=== PATIENT | male | born 1965 | race American Indian/Alaskan Native ===

== ENCOUNTER 2021-07-05 10:40 | Emergency (ER) | payer SELFPAY ==
[2021-07-05 11:29] VITALS: BP 153/89
--- NOTE | 2021-07-05 11:44 | Emergency Department Report ---
ED Lower Extremity HPI - General Chief Complaint: Extremity Injury, Lower Stated Complaint: RT LEG SWELLING Source: patient Mode of arrival: Ambulatory Limitations: No Limitations - History of Present Illness Initial Comments: Chief complaint: Right leg swelling HPI: This is a 56-year-old male with history of DVT VTE in abdomen who presents with right lower leg swelling for the last 4 to 5 days. 4 months ago he was diagnosed with right-sided right calf DVT and Ultram. He was treated with anticoagulation for 3 months. He stated that he had "clots in my abdomen". He was cleared by specialist. He did not require any further anticoagulation. Recently he noticed swelling in his lower leg without pain. Prior to returning to the [facility], ultrasound revealed that the right calf DVT still present. He denies chest pain or shortness of breath. He denies severe pain. Complaint: other (Right leg swelling) -: Gradual Injury: Leg: Right Place: other (No injury) Severity: mild Improves With: nothing Worsens With: nothing Context: other (History of DVT 4 months ago) Associated Symptoms: swelling - Related Data Previous Rx's Medication Instructions Recorded Last Taken Type Apixaban [Eliquis starter pack] 5 mg PO DAILY #1 tab.ds.pk 07/05/21 Unknown Rx Apixaban [Eliquis] 5 mg PO BID 30 Days #60 tablet 07/05/21 Unknown Rx ED Review of Systems ROS: Stated complaint: RT LEG SWELLING Other details as noted in HPI Comment: All other systems reviewed and negative Constitutional: denies: chills, fever Respiratory: denies: cough, shortness of breath Cardiovascular: denies: chest pain Gastrointestinal: denies: abdominal pain, nausea, vomiting Skin: denies: rash, lesions ED Past Medical Hx - Past Medical History Previous Medical History?: Yes Additional medical history: DVT - Surgical History Past Surgical History?: Yes Additional Surgical History: Prostate surgery - Social History Smoking Status: Never Smoker Substance Use Type: None - Medications Home Medications: Home Medications Medication Instructions Recorded Confirmed Last Taken Type Apixaban [Eliquis starter pack] 5 mg PO DAILY #1 tab.ds.pk 07/05/21 Unknown Rx Apixaban [Eliquis] 5 mg PO BID 30 Days #60 tablet 07/05/21 Unknown Rx ED Physical Exam - General Limitations: No Limitations General appearance: alert, in no apparent distress - Head Head exam: Present: atraumatic, normocephalic - Eye Eye exam: Present: normal appearance - ENT ENT exam: Present: mucous membranes moist - Neck Neck exam: Present: normal inspection, full ROM - Respiratory Respiratory exam: Present: normal lung sounds bilaterally. Absent: respiratory distress, wheezes, rales, rhonchi, stridor - Cardiovascular Cardiovascular Exam: Present: regular rate, normal rhythm, normal heart sounds. Absent: systolic murmur, diastolic murmur, rubs, gallop - GI/Abdominal GI/Abdominal exam: Present: soft, normal bowel sounds. Absent: distended, tenderness, guarding, rebound - Rectal Rectal exam: Present: deferred - Extremities Exam Extremities exam: Present: pedal edema, other (Right lower extremity: Mild edema from knee to foot 2+ DP pulse normal coloration slightly larger than the left lower extremity no cellulitic changes skin intact) - Neurological Exam Neurological exam: Present: alert, oriented X3 - Psychiatric Psychiatric exam: Present: normal affect, normal mood - Skin Skin exam: Present: warm, dry, intact, normal color. Absent: rash ED Course Vital Signs 07/05/21 07/05/21 11:28 11:29 Temperature 98.3 F Pulse Rate 50 L Blood Pressure 153/89 O2 Sat by Pulse 99 Oximetry ED Lower Extremity MDM - Radiology Data Radiology results: [place] [address] Vascular Lab Report Signed Patient: JACQUELYN RUBIO MR#: [id number] : 1965 Acct:[id number] Age/Sex: 56 / M ADM Date: 07/05/21 Loc: ED Attending Dr: Ordering Physician: Shamika Lindo MD Date of Service: 07/05/21 Procedure(s): VL venous duplex LE RT Accession Number(s): [id number] cc: Shamika Lindo MD DUPLEX DOPPLER LOWER EXTREMITY VEINS, RIGHT INDICATION / CLINICAL INFORMATION: right leg swelling hx of DVTG. TECHNIQUE: Duplex doppler imaging was performed through the veins of the right lower extremity using venous compression and other maneuvers. COMPARISON: None available. FINDINGS: RIGHT COMMON FEMORAL VEIN: Negative. RIGHT FEMORAL VEIN: Negative. RIGHT POPLITEAL VEIN: Acute thrombus. RIGHT CALF VEINS: Acute thrombus. ADDITIONAL FINDINGS: None. IMPRESSION: 1. Acute DVT in the right popliteal vein and right calf veins. Signer Name: Nasim Solis MD Signed: 07/05/2021 12:47 PM Workstation Name: [id number] Transcribed By: GRETA Dictated By: Nasim Solis MD Electronically Authenticated By: Nasim Solis MD Signed Date/Time: 07/05/211246 DD/ 46 TD/TT: - Medical Decision Making Acute DVT right calf and popliteal vein: No signs or symptoms of pulmonary embolism. 30-day supply of Eliquis provided. Patient given referral to internal medicine physician. Patient also given Eliquis coupon. Critical care attestation.: If time is entered above; I have spent that time in minutes in the direct care of this critically ill patient, excluding procedure time. ED Disposition Clinical Impression: Acute deep vein thrombosis (DVT) of right popliteal vein, Deep vein thrombosis (DVT) of calf muscle vein of right lower extremity Disposition: 01 HOME / SELF CARE / HOMELESS Is pt being admited?: No Does the pt Need Aspirin: No Condition: Stable Instructions: Deep Vein Thrombosis Prescriptions: Apixaban [Eliquis] 5 mg PO BID 30 Days #60 tablet Apixaban [Eliquis starter pack] 5 mg PO DAILY #1 tab.ds.pk Referrals: KRISTYN PINEDA MD [Staff Physician] - 3-5 Days
--- NOTE | 2021-07-05 12:52 | Vascular Lab Report ---
DUPLEX DOPPLER LOWER EXTREMITY VEINS, RIGHT INDICATION / CLINICAL INFORMATION: right leg swelling hx of DVTG. TECHNIQUE: Duplex doppler imaging was performed through the veins of the right lower extremity using venous comp ression and other maneuvers. COMPARISON: None available. FINDINGS: RIGHT COMMON FEMORAL VEIN: Negative. RIGHT FEMORAL VEIN: Negative. RIGHT POPLITEAL VEIN: Acute thrombus. RIGHT CALF VEINS: Acute thrombus. ADDITIONAL FINDINGS: None. IMPRESSION: 1. Acute DVT in the right popliteal vein and right calf veins. Signer Name: Nasim Solis MD Signed: 07/05/2021 12:47 PM Workstation Name: [email or web address] [id number]
[2021-07-05] MEDS ORDERED: APIXABAN 5 MG TAB PO STA (13:37)
== END 2021-07-05 13:43 | disposition home or self-care (01) ==
LOC: ED 10:40
DX: I82.431 Acute embolism and thrombosis of right popliteal vein (principal); Z98.890 Other specified postprocedural states; Z88.6 Allergy status to analgesic agent; Z79.01 Long term (current) use of anticoagulants
CPT/HCPCS: 99283

== ENCOUNTER 2022-02-28 23:28 | Emergency (ER) | payer OTHER ==
[2022-03-01 00:06] VITALS: BP 157/97
== END 2022-03-01 00:10 | disposition left against medical advice (07) ==
LOC: ED 23:28
DX: I10 Essential (primary) hypertension (principal); Z53.21 Procedure and treatment not carried out due to patient leaving prior to being seen by health care provider

== ENCOUNTER 2022-03-02 02:47 | Inpatient (IN) | payer OTHER ==
[2022-03-02] MEDS ORDERED: ASPIRIN 325 MG TAB PO ONE (03:39)
--- NOTE | 2022-03-02 04:25 | XRay Report ---
CHEST 2 VIEWS INDICATION / CLINICAL INFORMATION: chestpain. COMPARISON: None available. FINDINGS: SUPPORT DEVICES: None. HEART / MEDIASTINUM: No significant abnormality. LUNGS / PLEURA: No significant pulmonary or pleural abnormality. No pneumothorax. ADDITIONAL FINDINGS: No significant additional findings. IMPRESSION: 1. No acute findings. Signer Name: Tc Lima DO Signed: 03/02/2022 4:21 AM Workstation Name: [id number]
[2022-03-02 04:32] LABS: Basophils # (Auto) 0.1 K/mm3 (0.0-0.1); Basophils % (Auto) 1.3 % (0.0-1.8); Eosinophils # (Auto) 0.4 K/mm3 (0.0-0.4); Eosinophils % (Auto) 5.8 % (0.0-4.3); Hematocrit 51.1 % (35.5-45.6); Hemoglobin 16.6 gm/dl (11.8-15.2); Lymphocytes # (Auto) 2.6 K/mm3 (1.2-5.4); Lymphocytes % (Auto) 40.2 % (13.4-35.0); Mean Corpuscular HGB Conc 32 % (32-34); Mean Corpuscular Volume 76 fl (84-94); Monocytes # (Auto) 0.5 K/mm3 (0.0-0.8); Monocytes % (Auto) 7.2 % (0.0-7.3); Platelet Count 211 K/mm3 (140-440); Red Blood Count 6.74 M/mm3 (3.65-5.03); Red Cell Distribution Width 16.9 % (13.2-15.2)
[2022-03-02 04:53] LABS: Alanine Aminotransferase 21 units/L (7-56); Albumin 4.4 g/dL (3.9-5); BUN/Creatinine Ratio 15; Blood Urea Nitrogen 15 mg/dL (9-20); Calcium 9.5 mg/dL (8.4-10.2); Hemolysis Index 25
--- NOTE | 2022-03-02 09:18 | Emergency Department Report ---
HPI - General Chief Complaint: Chest Pain Time Seen by Provider: 03/02/22 08:54 - HPI HPI: Room 24 Patient is a 56-year-old male presenting with a chief complaint of left chest pain. The patient states he has had a stressful week and last night while at rest developed some lightheadedness and then a small sticking pain to the left chest. Patient states that the pain was not severe but just a small intermittent sticking pain to the left chest. Patient admits to some shortness of breath while lying supine. Patient denies pleurisy, cough or fever. Patient denies having nausea or vomiting. Patient states his chest pain is resolved currently he has not had any episodes of sticking pain since last night. Of note the patient was diagnosed with a DVT in his right lower extremity January 2021 and is currently on Eliquis. The patient states he was told he had an irregular heartbeat in the past. Patient states he had a normal stress test last year but has never had a cardiac catheterization ED Past Medical Hx - Past Medical History Previous Medical History?: Yes Hx Hypertension: Yes Additional medical history: DVT right lower extremity, BPH - Surgical History Past Surgical History?: Yes Additional Surgical History: Prostate surgery - Family History Family history: no significant - Social History Smoking Status: Never Smoker Substance Use Type: None (Denies illicit drug use) - Medications Home Medications: Home Medications Medication Instructions Recorded Confirmed Last Taken Type Apixaban [Eliquis starter pack] 5 mg PO DAILY #1 tab.ds.pk 07/05/21 1 Day Ago Rx ~03/01/22 Apixaban [Eliquis] 5 mg PO BID 30 Days #60 tablet 07/05/21 03/02/22 1 Day Ago Rx ~03/01/22 ED Review of Systems ROS: Stated complaint: HIGH BP/POSS BLOOD CLOT Other details as noted in HPI Constitutional: denies: fever Eyes: denies: eye pain ENT: denies: throat pain Respiratory: shortness of breath. denies: cough Cardiovascular: chest pain Endocrine: no symptoms reported Gastrointestinal: denies: nausea, vomiting Genitourinary: denies: dysuria Musculoskeletal: denies: back pain Neurological: denies: headache Physical Exam - Physical Exam Vital Signs: Vital Signs 03/02/22 03:25 Temperature 98.0 F Pulse Rate 60 Respiratory 18 Rate Blood Pressure 189/95 O2 Sat by Pulse 98 Oximetry Physical Exam: GENERAL: The patient is well-developed well-nourished male lying on stretcher not appearing to be in acute distress. [] HEENT: Normocephalic. Atraumatic. Extraocular motions are intact. Patient has moist mucous membranes. NECK: Supple. Trachea midline CHEST/LUNGS: Clear to auscultation. There is no respiratory distress noted. HEART/CARDIOVASCULAR: Regular. There is no tachycardia. There is no gallop rub or murmur. ABDOMEN: Abdomen is soft, nontender. Patient has normal bowel sounds. There is no abdominal distention. SKIN: There is no rash. There is no edema. There is no diaphoresis. NEURO: The patient is awake, alert, and oriented. The patient is cooperative. The patient has no focal neurologic deficits. The patient has normal speech. GCS 15 MUSCULOSKELETAL: There is no evidence of acute injury. ED Course Vital Signs 03/02/22 03:25 Temperature 98.0 F Pulse Rate 60 Respiratory 18 Rate Blood Pressure 189/95 O2 Sat by Pulse 98 Oximetry - Consultations Consultation #1: 03/02/22 12:02 Cardiology paged 03/02/22 12:43 Case discussed with dog or animal sitter Dr Medeiros-recommends admission to the hospital for observation given bradycardia with A. fib and possible intrinsic block ED Medical Decision Making - Lab Data Result diagrams: 03/02/22 04:12 03/02/22 04:12 Laboratory Tests 03/02/22 03/02/22 03/02/22 04:12 04:12 06:51 WBC 6.4 RBC 6.74 H Hgb 16.6 H Hct 51.1 H MCV 76 L MCH 25 L MCHC 32 RDW 16.9 H Plt Count 211 Lymph % (Auto) 40.2 H [place] % (Auto) 7.2 Eos % (Auto) 5.8 H Baso % (Auto) 1.3 Lymph # (Auto) 2.6 [place] # (Auto) 0.5 Eos # (Auto) 0.4 Baso # (Auto) 0.1 Seg Neutrophils % 45.5 Seg Neutrophils # 2.9 Sodium 139 Potassium 4.3 Chloride 102.2 Carbon Dioxide 27 Anion Gap 14 BUN 15 Creatinine 1.0 Estimated GFR > 60 BUN/Creatinine Ratio 15 Glucose 105 H Calcium 9.5 Total Bilirubin 1.50 H AST 23 ALT 21 Alkaline Phosphatase 89 Troponin T < 0.010 < 0.010 Total Protein 7.7 Albumin 4.4 Albumin/Globulin Ratio 1.3 03/02/22 09:39 WBC RBC Hgb Hct MCV MCH MCHC RDW Plt Count Lymph % (Auto) [place] % (Auto) Eos % (Auto) Baso % (Auto) Lymph # (Auto) [place] # (Auto) Eos # (Auto) Baso # (Auto) Seg Neutrophils % Seg Neutrophils # Sodium Potassium Chloride Carbon Dioxide Anion Gap BUN Creatinine Estimated GFR BUN/Creatinine Ratio Glucose Calcium Total Bilirubin AST ALT Alkaline Phosphatase Troponin T < 0.010 Total Protein Albumin Albumin/Globulin Ratio - EKG Data -: EKG Interpreted by Me Rate: bradycardia (55 bpm) - EKG Data When compared to previous EKG there are: previous EKG unavailable Interpretation: other (Atrial flutter with variable conduction) - Radiology Data Radiology results: report reviewed (Chest x-ray, VQ scan), image reviewed (Chest x-ray) interpreted by me: Chest x-ray-no definite focal infiltrates, no pneumothorax [facility] [address] [place] [address] XRay Report Signed Patient: JACQUELYN RUBIO MR#: [id number] : 1965 Acct:[id number] Age/Sex: 56 / M ADM Date: 03/02/22 Loc: ED Attending Dr: Ordering Physician: JASE SOSA MD Date of Service: 03/02/22 Pro cedure(s): XR chest routine 2V Accession Number(s): [id number] cc: ED MD SHEILA Fluoro Time In Minutes: CHEST 2 VIEWS INDICATION / CLINICAL INFORMATION: chestpain. COMPARISON: None available. FINDINGS: SUPPORT DEVICES: None. HEART / MEDIASTINUM: No significant abnormality. LUNGS / PLEURA: No significant pulmonary or pleural abnormality. No pneumothorax. ADDITIONAL FINDINGS: No significant additional findings. IMPRESSION: 1. No acute findings. Signer Name: Tc Martinez DO Signed: 03/02/2022 4:21 AM Workstation Name: [id number] Transcribed By: MADDY Dictated By: TC MARTINEZ DO Electronically Authenticated By: TC MARTINEZ DO Signed Date/Time: 03/02/22420 DD/ 8 TD/TT: VQ scan (read by radiologist)-low probability - Differential Diagnosis PE, ACS, anxiety, costochondritis, Critical care attestation.: If time is entered above; I have spent that time in minutes in the direct care of this critically ill patient, excluding procedure time. ED Disposition Clinical Impression: Atrial flutter, Chest pain Disposition: ADMITTED INPATIENT Is pt being admited?: Yes Does the pt Need Aspirin: No Condition: Fair Instructions: Nonspecific Chest Pain, Adult Referrals: PRIMARY CARE,MD [Primary Care Provider] - 3-5 Days Time of Disposition: 12:48 (Care transferred to hospitalist (Dr. Arellaon))
--- NOTE | 2022-03-02 09:23 | Electrocardiograph Report ---
[facility] Test Date: 2022-03-02 Test Time: 03:52:22 Pat Name: JACQUELYN RUBIO Department: Room: Gender: M Curriculum Designer: BELINDA : 1965 Requested By: ED DOC Order Number: [id number] Reading MD: Horace Alexander Measurements Intervals [place] Rate: 52 P: RI: QRS: -5 QRSD: 121 T: 240 QT: 470 QTc: 420 Interpretive Statements Atrial flutter Nonspecific intraventricular conduction delay Abnormal T, consider ischemia, diffuse leads No previous ECG available for comparison Electronically Signed On 03-02-2022 9:23:25 EDT by Horace Alexander
--- NOTE | 2022-03-02 11:33 | Nuclear Medicine Report ---
Perfusion only scan INDICATION: Left chest pain FINDINGS: 5 mCi of technetium MAA administered for examination. Comparison is made with 03/02/2022. Sym metric perfusion without filling defect in bilateral lungs. IMPRESSION: Low probability for PTE. Signer Name: Gustavo Paiz MD Signed: 03/02/2022 11:29 AM Workstation Name: [email or web address]
[2022-03-02] MEDS ORDERED: hydrOXYzine PAMOATE 25 MG CAP PO ONE (12:01)
[2022-03-02] MEDS ORDERED: oxyCODONE /ACETAMINOPHEN 5-325MG TAB PO PRN (13:07)
[2022-03-02] MEDS ORDERED: MORPHINE 2 MG/1 ML INJ IV PRN (13:07)
[2022-03-02] MEDS ORDERED: METOCLOPRAMIDE 10 MG/2 ML INJ IV PRN (13:07)
[2022-03-02] MEDS ORDERED: ACETAMINOPHEN 325 MG TAB PO PRN (13:07)
[2022-03-02] MEDS ORDERED: ONDANSETRON 4 MG/2 ML INJ IV PRN (13:07)
[2022-03-02] MEDS ORDERED: SODIUM CHLORIDE 0.9% 1000 ML 1,000 ML IV SCH (13:15)
[2022-03-02] MEDS ORDERED: NON-FORMULARY EACH (Apixaban 5 MG Tablet) PO SCH (13:15)
--- NOTE | 2022-03-02 13:45 | History and Physical Report ---
History of Present Illness Date of examination: 03/02/22 Date of admission: 03/02/2022 Chief complaint: Chest pain since last night Lightheadedness since last night History of present illness: 56-year-old -[place] male with history of hypertension DVT of the right lower extremity comes in for chest pain intermittently since last night. Also feels lightheaded. In the emergency room his blood pressure was very high. Patient has not been taking his Eliquis and blood pressure medications on a regular basis. Very noncompliant. Takes his mother's (medications. Does not buy his medications or follow-up with physician. In the emergency room patient was noted to be in a flutter and a high blood pressure hence patient being admitted. Chest pain is mild and intermittent. No shortness of breath. No diaphoresis. Lightheadedness present. In the emergency room blood pressure was very high. Patient is a 56-year-old male presenting with a chief complaint of left chest pain. The patient states he has had a stressful week and last night while at rest developed some lightheadedness and then a small sticking pain to the left chest. Patient states that the pain was not severe but just a small intermittent sticking pain to the left chest. Patient admits to some shortness of breath while lying supine. Patient denies pleurisy, cough or fever. Patient denies having nausea or vomiting. Patient states his chest pain is resolved currently he has not had any episodes of sticking pain since last night. Of note the patient was diagnosed with a DVT in his right lower extremity January 2021 and is currently on Eliquis. The patient states he was told he had an irregular heartbeat in the past. Patient states he had a normal stress test last year but has never had a cardiac catheterization - Past Medical History Previous Medical History?: Yes Hx Hypertension: Yes Additional medical history: DVT right lower extremity, BPH - Surgical History Past Surgical History?: Yes Additional Surgical History: Prostate surgery - Family History Family history: no significant - Social History Smoking Status: Never Smoker Substance Use Type: None (Denies illicit drug use) - Medications Home Medications: Home Medications Medication Instructions Recorded Confirmed Last Taken Type Apixaban [Eliquis starter pack] 5 mg PO DAILY #1 tab.ds.pk 07/05/21 1 Day Ago Rx ~03/01/22 Apixaban [Eliquis] 5 mg PO BID 30 Days #60 tablet 07/05/21 03/02/22 1 Day Ago Rx ~03/01/22 Review of Systems ROS: Stated complaint: HIGH BP/POSS BLOOD CLOT Other details as noted in HPI Constitutional: denies: fever Eyes: denies: eye pain ENT: denies: throat pain Respiratory: shortness of breath. denies: cough Cardiovascular: chest pain Endocrine: no symptoms reported Gastrointestinal: denies: nausea, vomiting Genitourinary: denies: dysuria Musculoskeletal: denies: back pain Neurological: denies: headache Medications and Allergies Allergies Allergy/AdvReac Type Severity Reaction Status Date / Time aspirin Allergy Severe Anaphylaxis Verified 07/05/21 13:30 Ct Contrast AdvReac Anaphylaxis Uncoded 07/05/21 13:30 Home Medications Medication Instructions Recorded Confirmed Last Taken Type Apixaban [Eliquis] 5 mg PO BID 30 Days #60 tablet 07/05/21 03/02/22 1 Day Ago Rx ~03/01/22 amLODIPine [Norvasc] 5 mg PO DAILY 03/02/22 03/02/22 Unknown History Active Meds: Active Medications Acetaminophen (Acetaminophen 325 Mg Tab) 650 mg PO Q4H PRN PRN Reason: Pain MILD(1-3)/Fever >100.5/GANNON Apixaban (Apixaban 5 Mg Tab) 5 mg PO Q12HR [facility]; Protocol Carvedilol (Carvedilol 12.5 Mg Tab) 12.5 mg PO BID [facility] Sodium Chloride (Nacl 0.9% 1000 Ml) 1,000 mls @ 75 mls/hr IV DIRECT [facility]GO Metoclopramide HCl (Metoclopramide 10 Mg/2 Ml Inj) 10 mg IV Q6H PRN PRN Reason: Nausea And Vomiting Morphine Sulfate (Morphine 2 Mg/1 Ml Inj) 2 mg IV Q4H PRN PRN Reason: Pain, Moderate (4-6) Ondansetron HCl (Ondansetron 4 Mg/2 Ml Inj) 4 mg IV Q8H PRN PRN Reason: Nausea And Vomiting Oxycodone/Acetaminophen (Oxycodone /Acetaminophen 5-325mg Tab) 1 tab PO Q6H PRN PRN Reason: Pain, Moderate (4-6) Sodium Chloride (Sodium Chloride 0.9% 10 Ml Flush Syringe) 10 ml IV BID [facility] Sodium Chloride (Sodium Chloride 0.9% 10 Ml Flush Syringe) 10 ml IV PRN PRN PRN Reason: LINE FLUSH Valsartan (Valsartan 160mg Tab) 160 mg PO Q24H [facility] Exam - Constitutional Vitals: Temp Pulse Resp BP Pulse Ox 98.0 F 58 L 18 157/99 100 03/02/22 03:25 03/02/22 09:15 03/02/22 09:40 03/02/22 09:15 03/02/22 09:40 General appearance: Present: no acute distress, well-nourished - EENT Eyes: Present: PERRL ENT: hearing intact, clear oral mucosa - Neck Neck: Present: supple, normal ROM - Respiratory Respiratory effort: normal Respiratory: bilateral: CTA - Cardiovascular Heart rate: 54 Rhythm: regular Heart Sounds: Present: S1 & S2. Absent: rub, click - Extremities Extremities: no ischemia, pulses intact, pulses symmetrical, No edema Peripheral Pulses: within normal limits - Abdominal General gastrointestinal: Present: soft, non-tender, non-distended, normal bowel sounds Male genitourinary: Present: normal - Integumentary Integumentary: Present: clear, warm, dry - Musculoskeletal Musculoskeletal: gait normal, strength equal bilaterally - Psychiatric Psychiatric: appropriate mood/affect, intact judgment & insight - Neurologic Neurologic: CNII-XII intact, moves all extremities HEART Score - HEART Score History: Moderately suspicious Age: 45-65 Risk factors: 1-2 risk factors Troponin: Troponin T < 0.010 ng/mL (0.00-0.029) 03/02/22 09:39 Troponin: < normal limit - Critical Actions Critical Actions: 0-3 pts:0.9-1.7%risk of adverse cardiac event.Candidate for higinio lopez Results - Labs CBC & Chem 7: 03/03/22 04:33 03/03/22 04:33 Labs: Laboratory Last Values WBC 6.4 K/mm3 (4.5-11.0) 03/02/22 04:12 RBC 6.74 M/mm3 (3.65-5.03) H 03/02/22 04:12 Hgb 16.6 gm/dl (11.8-15.2) H 03/02/22 04:12 Hct 51.1 % (35.5-45.6) H 03/02/22 04:12 MCV 76 fl (84-94) L 03/02/22 04:12 MCH 25 pg (28-32) L 03/02/22 04:12 MCHC 32 % (32-34) 03/02/22 04:12 RDW 16.9 % (13.2-15.2) H 03/02/22 04:12 Plt Count 211 K/mm3 (140-440) 03/02/22 04:12 Lymph % (Auto) 40.2 % (13.4-35.0) H 03/02/22 04:12 [place] % (Auto) 7.2 % (0.0-7.3) 03/02/22 04:12 Eos % (Auto) 5.8 % (0.0-4.3) H 03/02/22 04:12 Baso % (Auto) 1.3 % (0.0-1.8) 03/02/22 04:12 Lymph # (Auto) 2.6 K/mm3 (1.2-5.4) 03/02/22 04:12 [place] # (Auto) 0.5 K/mm3 (0.0-0.8) 03/02/22 04:12 Eos # (Auto) 0.4 K/mm3 (0.0-0.4) 03/02/22 04:12 Baso # (Auto) 0.1 K/mm3 (0.0-0.1) 03/02/22 04:12 Seg Neutrophils % 45.5 % (40.0-70.0) 03/02/22 04:12 Seg Neutrophils # 2.9 K/mm3 (1.8-7.7) 03/02/22 04:12 Sodium 139 mmol/L (137-145) 03/02/22 04:12 Potassium 4.3 mmol/L (3.6-5.0) 03/02/22 04:12 Chloride 102.2 mmol/L (98-107) 03/02/22 04:12 Carbon Dioxide 27 mmol/L (22-30) 03/02/22 04:12 Anion Gap 14 mmol/L 03/02/22 04:12 BUN 15 mg/dL (9-20) 03/02/22 04:12 Creatinine 1.0 mg/dL (0.8-1.3) 03/02/22 04:12 Estimated GFR > 60 ml/min 03/02/22 04:12 BUN/Creatinine Ratio 15 % 03/02/22 04:12 Glucose 105 mg/dL (75-100) H 03/02/22 04:12 Calcium 9.5 mg/dL (8.4-10.2) 03/02/22 04:12 Total Bilirubin 1.50 mg/dL (0.1-1.2) H 03/02/22 04:12 AST 23 units/L (5-40) 03/02/22 04:12 ALT 21 units/L (7-56) 03/02/22 04:12 Alkaline Phosphatase 89 units/L (35-129) 03/02/22 04:12 Troponin T < 0.010 ng/mL (0.00-0.029) 03/02/22 09:39 Total Protein 7.7 g/dL (6.3-8.2) 03/02/22 04:12 Albumin 4.4 g/dL (3.9-5) 03/02/22 04:12 Albumin/Globulin Ratio 1.3 % 03/02/22 04:12 Short CBC 03/02/22 03/03/22 Range/Units 13:54 04:33 WBC 7.4 6.9 (4.5-11.0) K/mm3 Hgb 16.1 H 15.4 H (11.8-15.2) gm/dl Hct 51.1 H 49.5 H (35.5-45.6) % Plt Count 226 207 (140-440) K/mm3 BMP 03/02/22 03/03/22 13:54 04:33 Sodium 140 Potassium 4.2 Chloride 104.6 Carbon Dioxide 22 BUN 11 Creatinine 1.1 0.9 Glucose 98 Calcium 8.7 Cardiac Enzymes 03/02/22 Range/Units 09:39 Troponin T < 0.010 (0.00-0.029) ng/mL Liver Function 03/03/22 Range/Units 04:33 Total Bilirubin 1.70 H (0.1-1.2) mg/dL AST 20 (5-40) units/L ALT 18 (7-56) units/L Alkaline Phosphatase 79 (35-129) units/L Albumin 3.9 (3.9-5) g/dL - Imaging and Cardiology EKG: report reviewed (A flutter with advance to full block) Chest x-ray: report reviewed (No acute findings) Assessment and Plan Advance Directives: Yes (Full code) VTE prophylaxis?: Chemical Plan of care discussed with patient/family: Yes - Patient Problems (1) Atrial flutter Current Visit: Yes Status: Acute Qualifiers: Atrial flutter type: typical Qualified Code(s): I48.3 - Typical atrial flutter Plan to address problem: No teofilo blocking agents Patient on Eliquis Cardiology consult requested (2) Uncontrolled hypertension Current Visit: Yes Status: Acute Plan to address problem: Patient counseled about noncompliance Patient started on nifedipine and valsartan Carvedilol stopped (3) Chest pain Current Visit: Yes Status: Acute Qualifiers: Chest pain type: unspecified Qualified Code(s): R07.9 - Chest pain, unspecified Plan to address problem: Serial troponins Cardiology consult Stress test if necessary (4) History of DVT (deep vein thrombosis) Current Visit: Yes Status: Chronic Plan to address problem: Continue Eliquis (5) Pre-syncope Current Visit: Yes Status: Acute Plan to address problem: IV fluids for now Probably precipitated by atrial flutter with heart rate of 50 (6) DVT prophylaxis Current Visit: Yes Status: Acute Plan to address problem: Patient on Eliquis and GI prophylaxis (7) Advance care planning Current Visit: Yes Status: Acute Plan to address problem: Disease education conducted care plan discussed, diagnosis discussed, prognosis with close. Patient is full code. Patient acknowledged understanding and agreement with care plan. +30 minutes.
[2022-03-02] MEDS ORDERED: carvediloL 12.5 MG TAB PO SCH (14:00)
[2022-03-02 14:04] LABS: Hematocrit 51.1 % (35.5-45.6); Hemoglobin 16.1 gm/dl (11.8-15.2); Mean Corpuscular HGB Conc 32 % (32-34); Mean Corpuscular Volume 77 fl (84-94); Platelet Count 226 K/mm3 (140-440); Red Blood Count 6.64 M/mm3 (3.65-5.03); Red Cell Distribution Width 16.7 % (13.2-15.2)
[2022-03-02 14:18] LABS: INR 0.97 (0.87-1.13)
[2022-03-02 14:19] LABS: Partial Thromboplastin Time 25.7 Sec. (24.2-36.6)
[2022-03-02] MEDS: VALSARTAN 160MG TAB PO SCH (15:23)
[2022-03-02] MEDS: APIXABAN 5 MG TAB PO SCH ×2 (15:23→21:06)
--- NOTE | 2022-03-02 15:32 | Consultation ---
History of Present Illness Consult date: 03/02/22 Consult reason: atrial fibrillation, shortness of breath, other (Dizziness) History of present illness: The patient is a 56-year-old man who presents to the emergency room with several days of fatigue, intermittent dizziness and dyspnea. ECG in the emergency room showed an atrial flutter with slow ventricular response with ventricular rate in the 50s. Blood pressure was elevated 180s systolic, and patient is notably not on AV teofilo blocking therapies. His medical history is notable for chronic hypertension for which he was initially prescribed amlodipine. A year ago, he also suffered a right lower extremity DVT, following prostate surgery. He was prescribed Eliquis. Prior to his prostate surgery, he states he had preop cardiac stress test involving bicycle exercise. He reports no history of atrial fibrillation or flutter. His current compliance with his medications is questionable. The patient does not see a doctor on a regular basis, and states that he gets his amlodipine from his mother who takes the same doses as he does. His amlodipine is also not taken under supervised medical care, but is obtained in the same way from a friend of his who is apparently also on Eliquis. He admits that he is often noncompliant with his medications as a result. There is no prior cardiac history, he denies any thyroid history. He has no chest pain, no lower extremity edema, and no wan syncope. Past History Past Medical History: DVT, hypertension Medications and Allergies Allergies Allergy/AdvReac Type Severity Reaction Status Date / Time aspirin Allergy Severe Anaphylaxis Verified 07/05/21 13:30 Ct Contrast AdvReac Anaphylaxis Uncoded 07/05/21 13:30 Home Medications Medication Instructions Recorded Confirmed Last Taken Type Apixaban [Eliquis starter pack] 5 mg PO DAILY #1 tab.ds.pk 07/05/21 1 Day Ago Rx ~03/01/22 Apixaban [Eliquis] 5 mg PO BID 30 Days #60 tablet 07/05/21 03/02/22 1 Day Ago Rx ~03/01/22 Active Meds: Active Medications Acetaminophen (Acetaminophen 325 Mg Tab) 650 mg PO Q4H PRN PRN Reason: Pain MILD(1-3)/Fever >100.5/GANNON Apixaban (Apixaban 5 Mg Tab) 5 mg PO Q12HR [facility]; Protocol Last Admin: 03/02/22 15:23 Dose: 5 mg Sodium Chloride (Nacl 0.9% 1000 Ml) 1,000 mls @ 75 mls/hr IV DIRECT [facility] Metoclopramide HCl (Metoclopramide 10 Mg/2 Ml Inj) 10 mg IV Q6H PRN PRN Reason: Nausea And Vomiting Morphine Sulfate (Morphine 2 Mg/1 Ml Inj) 2 mg IV Q4H PRN PRN Reason: Pain, Moderate (4-6) Ondansetron HCl (Ondansetron 4 Mg/2 Ml Inj) 4 mg IV Q8H PRN PRN Reason: Nausea And Vomiting Oxycodone/Acetaminophen (Oxycodone /Acetaminophen 5-325mg Tab) 1 tab PO Q6H PRN PRN Reason: Pain, Moderate (4-6) Sodium Chloride (Sodium Chloride 0.9% 10 Ml Flush Syringe) 10 ml IV BID [facility] Sodium Chloride (Sodium Chloride 0.9% 10 Ml Flush Syringe) 10 ml IV PRN PRN PRN Reason: LINE FLUSH Valsartan (Valsartan 160mg Tab) 160 mg PO Q24H [facility] Last Admin: 03/02/22 15:23 Dose: 160 mg Review of Systems Cardiovascular: palpitations, rapid/irregular heart beat, lightheadedness, shortness of breath, no chest pain, no orthopnea, no edema, no syncope Physical Examination Vital Signs Temp Pulse Resp BP Pulse Ox 98.0 F 60 18 189/95 98 03/02/22 03:25 03/02/22 03:25 03/02/22 03:25 03/02/22 03:25 03/02/22 03:25 General appearance: no acute distress HEENT: Positive: PERRL Neck: Positive: neck supple Cardiac: Positive: Irregularly Regular Lungs: Positive: Decreased Breath Sounds Neuro: Positive: Grossly Intact Abdomen: Positive: Soft Male genitourinary: Positive: deferred Skin: Positive: Clear Extremities: Absent: edema Results 03/02/22 13:54 03/02/22 13:54 Cardiac Enzymes 03/02/22 Range/Units 04:12 AST 23 (5-40) units/L Coagulation 03/02/22 Range/Units 13:54 PT 14.0 (12.2-14.9) Sec. INR 0.97 (0.87-1.13) APTT 25.7 (24.2-36.6) Sec. CBC 03/02/22 03/02/22 Range/Units 04:12 13:54 WBC 6.4 7.4 (4.5-11.0) K/mm3 RBC 6.74 H 6.64 H (3.65-5.03) M/mm3 Hgb 16.6 H 16.1 H (11.8-15.2) gm/dl Hct 51.1 H 51.1 H (35.5-45.6) % Plt Count 211 226 (140-440) K/mm3 Lymph # (Auto) 2.6 (1.2-5.4) K/mm3 [place] # (Auto) 0.5 (0.0-0.8) K/mm3 Eos # (Auto) 0.4 (0.0-0.4) K/mm3 Baso # (Auto) 0.1 (0.0-0.1) K/mm3 Comprehensive Metabolic Panel 03/02/22 03/02/22 Range/Units 04:12 13:54 Sodium 139 (137-145) mmol/L Potassium 4.3 (3.6-5.0) mmol/L Chloride 102.2 (98-107) mmol/L Carbon Dioxide 27 (22-30) mmol/L BUN 15 (9-20) mg/dL Creatinine 1.0 1.1 (0.8-1.3) mg/dL Glucose 105 H (75-100) mg/dL Calcium 9.5 (8.4-10.2) mg/dL AST 23 (5-40) units/L ALT 21 (7-56) units/L Alkaline Phosphatase 89 (35-129) units/L Total Protein 7.7 (6.3-8.2) g/dL Albumin 4.4 (3.9-5) g/dL EKG interpretations - Telemetry EKG Rhythm: Atrial Flutter (With variable AV conduction, and slow ventricular r esponse, ventricular rate 55) Assessment and Plan - Patient Problems (1) Pre-syncope Current Visit: Yes Status: Acute Plan to address problem: Patient presents with symptoms of lightheadedness and presyncope, EKG is atrial flutter of unknown chronicity, but patient has a very slow ventricular response without AV teofilo blocking therapies. This will suggest the presence of in trinsic conduction system disease. Patient will be watched on quality assurance monitor chassis, an echocardiogram will be done for left ventricular function assessment, left atrial size, and further cardiac management will depend on clinical course. A thyroid stimulating hormone level has been ordered. (2) Uncontrolled hypertension Current Visit: Yes Status: Acute Plan to address problem: We will treat uncontrolled hypertension with Procardia XL 60 mg daily. Additional medical therapy as needed after LV function assessment. We will avoid AV teofilo blockers in this patient, I have stopped the carvedilol 12.5 mg that was ordered on his admission profile. (3) History of DVT (deep vein thrombosis) Current Visit: Yes Status: Acute Plan to address problem: Continue oral anticoagulation therapy for DVT, now directed at atrial tachyarrhythmias. The patient's options for long-term anticoagulation include the use of warfarin which is less expensive and will not necessitate his continued noncompliance and dependence on another person's medication.
[2022-03-03 05:53] LABS: Mean Corpuscular HGB Conc 31 % (32-34); Mean Corpuscular Volume 77 fl (84-94); Platelet Count 207 K/mm3 (140-440); Red Blood Count 6.42 M/mm3 (3.65-5.03); Red Cell Distribution Width 16.4 % (13.2-15.2)
[2022-03-03 05:57] LABS: Hemoglobin 15.4 gm/dl (11.8-15.2)
[2022-03-03 05:58] LABS: Hematocrit 49.5 % (35.5-45.6)
[2022-03-03 06:20] LABS: Alanine Aminotransferase 18 units/L (7-56); Albumin 3.9 g/dL (3.9-5); BUN/Creatinine Ratio 12; Blood Urea Nitrogen 11 mg/dL (9-20); Calcium 8.7 mg/dL (8.4-10.2); Hemolysis Index 14
[2022-03-03 08:39] LABS: Basophils % (Manual) 0 % (0.0-1.8); Promyelocytes # (Manual) 0.1 K/mm3; Total Cells Counted 100
[2022-03-03 08:46] LABS: Large Platelets Few
[2022-03-03 08:50] LABS: Platelet Estimate Consistent w Auto; RBC Morphology Normal
[2022-03-03] MEDS: NIFEdipine XL 60 MG TAB PO SCH ×2 (09:22→22:05)
[2022-03-03] MEDS: APIXABAN 5 MG TAB PO SCH (09:22)
--- NOTE | 2022-03-03 11:20 | Electrocardiograph Report ---
[facility] Test Date: 2022-03-02 Test Time: 10:27:45 Pat Name: JACQUELYN RUBIO Department: Room: A453 Gender: M President And Cmo: DONNA : 1965 Requested By: BEE WALKER Order Number: [id number] Reading MD: Ernie Condon Measurements Intervals [place] Rate: 55 P: OR: QRS: -16 QRSD: 124 T: 229 QT: 501 QTc: 479 Interpretive Statements Atrial flutter with predominant 4:1 AV block Nonspecific intraventricular conduction delay ST elevation secondary to atrial flutter Abnormal T, probable ischemia, lateral leads Compared to ECG 03/02/2022 03:52:22 AV block, advanced (high-grade) now present ST (T wave) deviation now present T-wave abnormality still present Possible ischemia still present Electronically Signed On 03-03-2022 11:20:12 EDT by Ernie Condon
--- NOTE | 2022-03-03 11:33 | Progress Note ---
Assessment and Plan - Patient Problems (1) Pre-syncope Current Visit: Yes Status: Acute Plan to address problem: Patient presents with symptoms of lightheadedness and presyncope, EKG is atrial flutter of unknown chronicity, but patient has a very slow ventricular response without AV teofilo blocking therapies. This will suggest the presence of intrinsic conduction system disease. TSH level is normal at 2.0, overnight his ventricular rate remains slow with heart rates as low as 33. We will continue monitoring of his atrial flutter in the setting of conduction system disease, and further consultation with electrophysiology. (2) Uncontrolled hypertension Current Visit: Yes Status: Acute Plan to address problem: Blood pressure control is much improved with Procardia XL 60 mg daily. We will continue to avoid AV teofilo blocking agents. (3) History of DVT (deep vein thrombosis) Current Visit: Yes Status: Chronic Plan to address problem: Continue oral anticoagulation therapy for DVT, now directed at atrial tachyarrhythmias. The patient's options for long-term anticoagulation include the use of warfarin which is less expensive and will not necessitate his continued noncompliance and dependence on another person's medication. Subjective Date of service: 03/03/22 Principal diagnosis: Near syncope, atrial flutter Interval history: Patient is comfortable in no acute distress. His telemetry monitoring overnight shows a persistent atrial flutter, with very slow ventricular rate, as low as low 30s. An echocardiogram today shows well-preserved left ventricular systolic function, full report is pending. Objective Vital Signs Temp Pulse Pulse Pulse Pulse Resp BP 03/03/22 07:28 97.9 F 54 L 18 03/03/22 05:06 97.2 F L 56 L 16 145/83 03/03/22 04:00 51 L 03/03/22 00:00 56 L 03/02/22 23:57 97.0 F L 49 L 16 132/78 03/02/22 22:22 97.1 F L 43 L 16 145/84 03/02/22 22:00 53 L 53 L 53 L 18 03/02/22 20:00 58 L 03/02/22 19:20 64 19 152/91 03/02/22 19:10 62 179/101 03/02/22 17:57 179/101 03/02/22 17:30 179/101 03/02/22 17:20 179/101 03/02/22 17:10 179/101 03/02/22 17:00 179/101 03/02/22 16:52 179/101 03/02/22 16:40 179/101 03/02/22 16:30 179/101 03/02/22 16:20 179/101 03/02/22 16:10 179/101 03/02/22 16:00 179/101 03/02/22 15:50 168/103 03/02/22 15:40 168/103 03/02/22 15:30 168/103 03/02/22 15:23 53 L 168/103 03/02/22 15:20 53 L 168/103 03/02/22 15:10 03/02/22 15:00 03/02/22 14:50 03/02/22 14:40 03/02/22 14:30 03/02/22 14:20 03/02/22 14:10 03/02/22 14:00 03/02/22 13:50 03/02/22 13:40 03/02/22 13:30 03/02/22 13:20 03/02/22 13:10 03/02/22 13:00 03/02/22 12:50 03/02/22 12:40 03/02/22 12:30 03/02/22 12:20 03/02/22 12:10 03/02/22 12:00 03/02/22 11:50 03/02/22 11:40 BP Pulse Ox 03/03/22 07:28 144/92 97 03/03/22 05:06 97 03/03/22 04:00 03/03/22 00:00 03/02/22 23:57 95 03/02/22 22:22 99 03/02/22 22:00 100 03/02/22 20:00 03/02/22 19:20 100 03/02/22 19:10 98 03/02/22 17:57 86 03/02/22 17:30 99 03/02/22 17:20 100 03/02/22 17:10 98 03/02/22 17:00 99 03/02/22 16:52 98 03/02/22 16:40 100 03/02/22 16:30 100 03/02/22 16:20 100 03/02/22 16:10 99 03/02/22 16:00 98 03/02/22 15:50 100 03/02/22 15:40 99 03/02/22 15:30 99 03/02/22 15:23 03/02/22 15:20 100 03/02/22 15:10 98 03/02/22 15:00 99 03/02/22 14:50 98 03/02/22 14:40 98 03/02/22 14:30 98 03/02/22 14:20 99 03/02/22 14:10 99 03/02/22 14:00 100 03/02/22 13:50 99 03/02/22 13:40 98 03/02/22 13:30 99 03/02/22 13:20 99 03/02/22 13:10 99 03/02/22 13:00 100 03/02/22 12:50 100 03/02/22 12:40 99 03/02/22 12:30 98 03/02/22 12:20 99 03/02/22 12:10 99 03/02/22 12:00 100 03/02/22 11:50 100 03/02/22 11:40 99 - Physical Examination HEENT: Positive: PERRL Neck: Positive: neck supple Cardiac: Positive: irregularly irregular Lungs: Positive: Decreased Breath Sounds Neuro: Positive: Grossly Intact Abdomen: Positive: Soft Skin: Positive: Clear Extremities: Absent: edema - Labs and Meds Cardiac Enzymes 03/03/22 Range/Units 04:33 AST 20 (5-40) units/L Coagulation 03/02/22 Range/Units 13:54 PT 14.0 (12.2-14.9) Sec. INR 0.97 (0.87-1.13) APTT 25.7 (24.2-36.6) Sec. CBC 03/02/22 03/03/22 Range/Units 13:54 04:33 WBC 7.4 6.9 (4.5-11.0) K/mm3 RBC 6.64 H 6.42 H (3.65-5.03) M/mm3 Hgb 16.1 H 15.4 H (11.8-15.2) gm/dl Hct 51.1 H 49.5 H (35.5-45.6) % Plt Count 226 207 (140-440) K/mm3 Comprehensive Metabolic Panel 03/02/22 03/03/22 Range/Units 13:54 04:33 Sodium 140 (137-145) mmol/L Potassium 4.2 (3.6-5.0) mmol/L Chloride 104.6 (98-107) mmol/L Carbon Dioxide 22 (22-30) mmol/L BUN 11 (9-20) mg/dL Creatinine 1.1 0.9 (0.8-1.3) mg/dL Glucose 98 (75-100) mg/dL Calcium 8.7 (8.4-10.2) mg/dL AST 20 (5-40) units/L ALT 18 (7-56) units/L Alkaline Phosphatase 79 (35-129) units/L Total Protein 6.6 (6.3-8.2) g/dL Albumin 3.9 (3.9-5) g/dL - Imaging and Cardiology EKG: report reviewed (A flutter with advance to full block)
--- NOTE | 2022-03-03 12:38 | Event Note ---
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 We will hold Eliquis therapy in anticipation of pacemaker implant in 2 days.
[2022-03-03] MEDS: VALSARTAN 160MG TAB PO SCH (14:37)
--- NOTE | 2022-03-03 20:47 | Progress Note ---
Assessment and Plan - Patient Problems (1) Atrial flutter Current Visit: Yes Status: Acute Qualifiers: Atrial flutter type: typical Qualified Code(s): I48.3 - Typical atrial flutter Plan to address problem: Cardiology team consulted. Telemetry monitoring, hold anticoagulation for the next 2 days. Patient is pending ICD implantation as per cardiology team. (2) Obesity (BMI 30.0-34.9) Current Visit: Yes Status: Acute Plan to address problem: Balanced diet, regular physical activity discharge, outpatient pulmonary follow- up for sleep study. (3) Heart block Current Visit: Yes Status: Acute Plan to address problem: Cardiology team consulted. Patient pending ICD implantation, echocardiogram reviewed as per cardiology team. (4) DVT prophylaxis Current Visit: Yes Status: Acute Plan to address problem: SCD to bilateral lower extremities while in bed (5) Advance care planning Current Visit: Yes Status: Acute Plan to address problem: Disease education conducted, care plan discussed, diagnoses discussed, prognosis discussed, patient is full code. Patient acknowledges understanding and agreement with care plan, +30 minutes. (6) Preventative health care Current Visit: Yes Status: Acute Plan to address problem: Patient counseled regarding risk factor reduction, balanced diet, outpatient follow-up for age-appropriate screening test. History Interval history: 56 YO Male HD#2 with Obesity Hypoventilation Syndrome, Atrial Flutter and History of DVT currently on therapeutic anticoagulation with concomitant heart block. Cardiology team consulted. Patient resting comfortably in bed. Patient denies pain. Patient pending ICD implantation as per cardiology team. Hospitalist Physical - Constitutional Vitals: Temp Pulse Resp BP Pulse Ox 98.2 F 46 L 18 158/97 100 03/03/22 15:38 03/03/22 15:38 03/03/22 15:38 03/03/22 15:38 03/03/22 15:38 General appearance: Present: no acute distress, well-nourished, obese - EENT Eyes: Present: PERRL ENT: hearing intact - Neck Neck: Present: supple - Respiratory Respiratory effort: normal Respiratory: bilateral: CTA - Cardiovascular Rhythm: irregularly irregular - Extremities Extremities: no ischemia Peripheral Pulses: within normal limits - Abdominal General gastrointestinal: soft, non-tender, non-distended - Integumentary Integumentary: Present: clear - Psychiatric Psychiatric: cooperative - Neurologic Neurologic: CNII-XII intact HEART Score - HEART Score Age: 45-65 Risk factors: 1-2 risk factors Troponin: Troponin T < 0.010 ng/mL (0.00-0.029) 03/02/22 09:39 Troponin: < normal limit - Critical Actions Critical Actions: 0-3 pts:0.9-1.7%risk of adverse cardiac event.Candidate for discharge Results - Labs CBC & Chem 7: 03/03/22 04:33 03/03/22 04:33 Labs: Laboratory Last Values WBC 6.9 K/mm3 (4.5-11.0) 03/03/22 04:33 RBC 6.42 M/mm3 (3.65-5.03) H 03/03/22 04:33 Hgb 15.4 gm/dl (11.8-15.2) H 03/03/22 04:33 Hct 49.5 % (35.5-45.6) H 03/03/22 04:33 MCV 77 fl (84-94) L 03/03/22 04:33 MCH 24 pg (28-32) L 03/03/22 04:33 MCHC 31 % (32-34) L 03/03/22 04:33 RDW 16.4 % (13.2-15.2) H 03/03/22 04:33 Plt Count 207 K/mm3 (140-440) 03/03/22 04:33 Lymph % (Auto) 40.2 % (13.4-35.0) H 03/02/22 04:12 [place] % (Auto) 7.2 % (0.0-7.3) 03/02/22 04:12 Eos % (Auto) 5.8 % (0.0-4.3) H 03/02/22 04:12 Baso % (Auto) 1.3 % (0.0-1.8) 03/02/22 04:12 Lymph # (Auto) 2.6 K/mm3 (1.2-5.4) 03/02/22 04:12 [place] # (Auto) 0.5 K/mm3 (0.0-0.8) 03/02/22 04:12 Eos # (Auto) 0.4 K/mm3 (0.0-0.4) 03/02/22 04:12 Baso # (Auto) 0.1 K/mm3 (0.0-0.1) 03/02/22 04:12 Add Manual Diff Complete 03/03/22 04:33 Total Counted 100 03/03/22 04:33 Seg Neutrophils % Human Resources Operations Specialist 03/03/22 04:33 Seg Neuts % (Manual) 46.0 % (40.0-70.0) 03/03/22 04:33 Band Neutrophils % 0 % 03/03/22 04:33 Lymphocytes % (Manual) 37.0 % (13.4-35.0) H 03/03/22 04:33 Reactive Lymphs % (Man) 5.0 % 03/03/22 04:33 Monocytes % (Manual) 2.0 % (0.0-7.3) 03/03/22 04:33 Eosinophils % (Manual) 7.0 % (0.0-4.3) H 03/03/22 04:33 Basophils % (Manual) 0 % (0.0-1.8) 03/03/22 04:33 Metamyelocytes % 1.0 % 03/03/22 04:33 Myelocytes % 0 % 03/03/22 04:33 Promyelocytes % 1.0 % 03/03/22 04:33 Blast Cells % 1.0 % 03/03/22 04:33 Nucleated RBC % Not Reportable 03/03/22 04:33 Seg Neutrophils # 2.9 K/mm3 (1.8-7.7) 03/02/22 04:12 Seg Neutrophils # Man 3.2 K/mm3 (1.8-7.7) 03/03/22 04:33 Band Neutrophils # 0.0 K/mm3 03/03/22 04:33 Lymphocytes # (Manual) 2.6 K/mm3 (1.2-5.4) 03/03/22 04:33 Abs React Lymphs (Man) 0.3 K/mm3 03/03/22 04:33 Monocytes # (Manual) 0.1 K/mm3 (0.0-0.8) 03/03/22 04:33 Eosinophils # (Manual) 0.5 K/mm3 (0.0-0.4) H 03/03/22 04:33 Basophils # (Manual) 0.0 K/mm3 (0.0-0.1) 03/03/22 04:33 Metamyelocytes # 0.1 K/mm3 03/03/22 04:33 Myelocytes # 0.0 K/mm3 03/03/22 04:33 Promyelocytes # 0.1 K/mm3 03/03/22 04:33 Blast Cells # 0.9 K/mm3 03/03/22 04:33 WBC Morphology Not Reportable 03/03/22 04:33 Hypersegmented Neuts Not Reportable 03/03/22 04:33 Hyposegmented Neuts Not Reportable 03/03/22 04:33 Hypogranular Neuts Not Reportable 03/03/22 04:33 Smudge Cells Not Reportable 03/03/22 04:33 Toxic Granulation Not Reportable 03/03/22 04:33 Toxic Vacuolation Not Reportable 03/03/22 04:33 Dohle Bodies Not Reportable 03/03/22 04:33 Pelger-Huet Anomaly Not Reportable 03/03/22 04:33 Kartik Rods Not Reportable 03/03/22 04:33 Platelet Estimate Consistent w auto 03/03/22 04:33 Clumped Platelets Not Reportable 03/03/22 04:33 Plt Clumps, EDTA Not Reportable 03/03/22 04:33 Large Platelets Few 03/03/22 04:33 Giant Platelets Not Reportable 03/03/22 04:33 Platelet Satelliting Not Reportable 03/03/22 04:33 Plt Morphology Comment Not Reportable 03/03/22 04:33 RBC Morphology Normal 03/03/22 04:33 Dimorphic RBCs Not Reportable 03/03/22 04:33 Polychromasia Not Reportable 03/03/22 04:33 Hypochromasia Not Reportable 03/03/22 04:33 Poikilocytosis Not Reportable 03/03/22 04:33 Anisocytosis Not Reportable 03/03/22 04:33 Microcytosis Not Reportable 03/03/22 04:33 Macrocytosis Not Reportable 03/03/22 04:33 Spherocytes Not Reportable 03/03/22 04:33 Pappenheimer Bodies Not Reportable 03/03/22 04:33 Sickle Cells Not Reportable 03/03/22 04:33 Target Cells Not Reportable 03/03/22 04:33 Tear Drop Cells Not Reportable 03/03/22 04:33 Ovalocytes Not Reportable 03/03/22 04:33 Helmet Cells Not Reportable 03/03/22 04:33 [place] Bodies Not Reportable 03/03/22 04:33 [place] Rings Not Reportable 03/03/22 04:33 [place] Cells Not Reportable 03/03/22 04:33 Bite Cells Not Reportable 03/03/22 04:33 Crenated Cell Not Reportable 03/03/22 04:33 Elliptocytes Not Reportable 03/03/22 04:33 Acanthocytes (Spur) Not Reportable 03/03/22 04:33 Rouleaux Not Reportable 03/03/22 04:33 Hemoglobin C Crystals Not Reportable 03/03/22 04:33 Schistocytes Not Reportable 03/03/22 04:33 Malaria parasites Not Reportable 03/03/22 04:33 Jason Bodies Not Reportable 03/03/22 04:33 Hem Pathologist Commnt No 03/03/22 04:33 PT 14.0 Sec. (12.2-14.9) 03/02/22 13:54 INR 0.97 (0.87-1.13) 03/02/22 13:54 APTT 25.7 Sec. (24.2-36.6) 03/02/22 13:54 Sodium 140 mmol/L (137-145) 03/03/22 04:33 Potassium 4.2 mmol/L (3.6-5.0) 03/03/22 04:33 Chloride 104.6 mmol/L (98-107) 03/03/22 04:33 Carbon Dioxide 22 mmol/L (22-30) 03/03/22 04:33 Anion Gap 18 mmol/L 03/03/22 04:33 BUN 11 mg/dL (9-20) 03/03/22 04:33 Creatinine 0.9 mg/dL (0.8-1.3) 03/03/22 04:33 Estimated GFR > 60 ml/min 03/03/22 04:33 BUN/Creatinine Ratio 12 % 03/03/22 04:33 Glucose 98 mg/dL (75-100) 03/03/22 04:33 Calcium 8.7 mg/dL (8.4-10.2) 03/03/22 04:33 Total Bilirubin 1.70 mg/dL (0.1-1.2) H 03/03/22 04:33 AST 20 units/L (5-40) 03/03/22 04:33 ALT 18 units/L (7-56) 03/03/22 04:33 Alkaline Phosphatase 79 units/L (35-129) 03/03/22 04:33 Troponin T < 0.010 ng/mL (0.00-0.029) 03/02/22 09:39 Total Protein 6.6 g/dL (6.3-8.2) 03/03/22 04:33 Albumin 3.9 g/dL (3.9-5) 03/03/22 04:33 Albumin/Globulin Ratio 1.4 % 03/03/22 04:33 TSH 2.010 mlU/mL (0.270-4.200) 03/02/22 16:44 Active Medications - Current Medications Current Medications: Generic Name Dose Route Start Last Admin Trade Name Freq PRN Reason Stop Dose Admin Acetaminophen 650 mg 03/02/22 13:07 Acetaminophen 325 Mg Tab PO Q4H PRN Pain MILD(1-3)/Fever >100.5/GANNON Sodium Chloride 1,000 mls @ 75 mls/hr 03/02/22 13:15 Nacl 0.9% 1000 Ml IV DIRECT GOGO Metoclopramide HCl 10 mg 03/02/22 13:07 Metoclopramide 10 Mg/2 Ml Inj IV Q6H PRN Nausea And Vomiting Morphine Sulfate 2 mg 03/02/22 13:07 Morphine 2 Mg/1 Ml Inj IV Q4H PRN Pain, Moderate (4-6) Nifedipine 60 mg 03/02/22 17:00 03/03/22 09:22 Nifedipine Xl 60 Mg Tab PO 60 mg QDAY GGOO Administration Ondansetron HCl 4 mg 03/02/22 13:07 Ondansetron 4 Mg/2 Ml Inj IV Q8H PRN Nausea And Vomiting Oxycodone/Acetaminophen 1 tab 03/02/22 13:07 Oxycodone /Acetaminophen 5-325mg Tab PO Q6H PRN Pain, Moderate (4-6) Sodium Chloride 10 ml 03/02/22 22:00 03/03/22 09:23 Sodium Chloride 0.9% 10 Ml Flush Syringe IV 10 ml BID GOGO Administration Sodium Chloride 10 ml 03/02/22 13:07 Sodium Chloride 0.9% 10 Ml Flush Syringe IV PRN PRN LINE FLUSH Valsartan 160 mg 03/02/22 14:00 03/03/22 14:37 Valsartan 160mg Tab PO 160 mg Q24H GOGO Administration
[2022-03-04 06:40] LABS: Hematocrit 48.9 % (35.5-45.6); Hemoglobin 15.6 gm/dl (11.8-15.2); Mean Corpuscular HGB Conc 32 % (32-34); Mean Corpuscular Volume 76 fl (84-94); Platelet Count 218 K/mm3 (140-440); Red Blood Count 6.41 M/mm3 (3.65-5.03); Red Cell Distribution Width 16.5 % (13.2-15.2)
[2022-03-04] MEDS: NIFEdipine XL 60 MG TAB PO SCH (09:01)
--- NOTE | 2022-03-04 10:55 | Progress Note ---
Assessment and Plan - Patient Problems (1) Pre-syncope Current Visit: Yes Status: Acute Plan to address problem: Patient presents with symptoms of lightheadedness and presyncope, EKG is atrial flutter of unknown chronicity, but patient has a very slow ventricular response without AV teofilo blocking therapies. This will suggest the presence of intrinsic conduction system disease. TSH level is normal at 2.0, overnight his ventricular rate remains slow with heart rates as low as 33. We will recommend pacemaker implant, scheduled for tomorrow morning. His Liliana is on temporary hold for pacemaker procedure. (2) Uncontrolled hypertension Current Visit: Yes Status: Acute Plan to address problem: Blood pressure control is much improved with Procardia XL 60 mg daily. We will continue therapy for optimal blood pressure control. (3) History of DVT (deep vein thrombosis) Current Visit: Yes Status: Chronic Plan to address problem: Continue oral anticoagulation therapy for DVT, now directed at atrial tachyarrhythmias. The patient's options for long-term anticoagulation include the use of warfarin which is less expensive and will not necessitate his continued noncompliance and dependence on another person's medication. Subjective Date of service: 03/04/22 Principal diagnosis: Near syncope, atrial flutter Interval history: The patient is comfortable, his rhythm remains atrial flutter with slow ventricular response, heart rates in the high 40s to low 50s. Objective Vital Signs Temp Pulse Resp BP Pulse Ox 03/04/22 10:00 56 L 03/04/22 07:13 97.9 F 56 L 18 145/91 100 03/04/22 04:56 97.3 F L 50 L 16 135/81 99 03/03/22 23:54 96.9 F L 52 L 16 135/79 99 03/03/22 22:00 98 03/03/22 20:08 97.3 F L 53 L 16 160/91 100 03/03/22 15:38 98.2 F 46 L 18 158/97 100 03/03/22 11:40 98.2 F 37 L 18 165/93 97 - Physical Examination General: No Apparent Distress HEENT: Positive: PERRL Neck: Positive: neck supple Cardiac: Positive: irregularly irregular Lungs: Positive: clear to auscultation Neuro: Positive: Grossly Intact Abdomen: Positive: Soft Skin: Positive: Clear Extremities: Absent: edema - Labs and Meds CBC 03/04/22 Range/Units 06:25 WBC 7.2 (4.5-11.0) K/mm3 RBC 6.41 H (3.65-5.03) M/mm3 Hgb 15.6 H (11.8-15.2) gm/dl Hct 48.9 H (35.5-45.6) % Plt Count 218 (140-440) K/mm3 - Imaging and Cardiology EKG: report reviewed (A flutter with advance to full block)
[2022-03-04] MEDS: VALSARTAN 160MG TAB PO SCH (13:42)
--- NOTE | 2022-03-04 16:27 | Progress Note ---
Assessment and Plan - Patient Problems (1) Atrial flutter Current Visit: Yes Status: Acute Qualifiers: Atrial flutter type: typical Qualified Code(s): I48.3 - Typical atrial flutter Plan to address problem: Cardiology team consulted. Telemetry monitoring, hold anticoagulation for the next 2 days. Patient is pending ICD implantation as per cardiology team. (2) Obesity (BMI 30.0-34.9) Current Visit: Yes Status: Acute Plan to address problem: Balanced diet, regular physical activity discharge, outpatient pulmonary follow- up for sleep study. (3) Heart block Current Visit: Yes Status: Acute Plan to address problem: Cardiology team consulted. Patient pending ICD implantation, echocardiogram reviewed as per cardiology team. (4) DVT prophylaxis Current Visit: Yes Status: Acute Plan to address problem: SCD to bilateral lower extremities while in bed (5) Advance care planning Current Visit: Yes Status: Acute Plan to address problem: Disease education conducted, care plan discussed, diagnoses discussed, prognosis discussed, patient is full code. Patient acknowledges understanding and agreement with care plan, +30 minutes. (6) Preventative health care Current Visit: Yes Status: Acute Plan to address problem: Patient counseled regarding risk factor reduction, balanced diet, outpatient follow-up for age-appropriate screening test. History Interval history: 56 YO Male HD#3 with Obesity Hypoventilation Syndrome, Atrial Flutter and History of DVT. Anticoagulation has been held as per cardiology recommendations. Patient resting comfortably in bed. Patient denies pain. Patient pending ICD implantation as per cardiology team. Hospitalist Physical - Constitutional Vitals: Temp Pulse Resp BP Pulse Ox 98.3 F 60 18 152/87 97 03/04/22 15:55 03/04/22 15:55 03/04/22 15:55 03/04/22 15:55 03/04/22 15:55 General appearance: Present: no acute distress, well-nourished, obese - EENT Eyes: Present: PERRL, EOM intact ENT: hearing intact - Neck Neck: Present: supple - Respiratory Respiratory effort: normal Respiratory: bilateral: CTA - Cardiovascular Rhythm: regular Heart Sounds: Present: S1 & S2 - Extremities Extremities: no ischemia Peripheral Pulses: within normal limits - Abdominal General gastrointestinal: soft, non-tender, non-distended - Integumentary Integumentary: Present: clear, dry - Psychiatric Psychiatric: cooperative - Neurologic Neurologic: CNII-XII intact HEART Score - HEART Score Age: 45-65 Risk factors: 1-2 risk factors Troponin: Troponin T < 0.010 ng/mL (0.00-0.029) 03/02/22 09:39 Troponin: < normal limit - Critical Actions Critical Actions: 0-3 pts:0.9-1.7%risk of adverse cardiac event.Candidate for discharge Results - Labs CBC & Chem 7: 03/04/22 06:25 03/03/22 04:33 Labs: Laboratory Last Values WBC 7.2 K/mm3 (4.5-11.0) 03/04/22 06:25 RBC 6.41 M/mm3 (3.65-5.03) H 03/04/22 06:25 Hgb 15.6 gm/dl (11.8-15.2) H 03/04/22 06:25 Hct 48.9 % (35.5-45.6) H 03/04/22 06:25 MCV 76 fl (84-94) L 03/04/22 06:25 MCH 24 pg (28-32) L 03/04/22 06:25 MCHC 32 % (32-34) 03/04/22 06:25 RDW 16.5 % (13.2-15.2) H 03/04/22 06:25 Plt Count 218 K/mm3 (140-440) 03/04/22 06:25 Lymph % (Auto) 40.2 % (13.4-35.0) H 03/02/22 04:12 [place] % (Auto) 7.2 % (0.0-7.3) 03/02/22 04:12 Eos % (Auto) 5.8 % (0.0-4.3) H 03/02/22 04:12 Baso % (Auto) 1.3 % (0.0-1.8) 03/02/22 04:12 Lymph # (Auto) 2.6 K/mm3 (1.2-5.4) 03/02/22 04:12 [place] # (Auto) 0.5 K/mm3 (0.0-0.8) 03/02/22 04:12 Eos # (Auto) 0.4 K/mm3 (0.0-0.4) 03/02/22 04:12 Baso # (Auto) 0.1 K/mm3 (0.0-0.1) 03/02/22 04:12 Add Manual Diff Complete 03/03/22 04:33 Total Counted 100 03/03/22 04:33 Seg Neutrophils % Record Center Coordinator 03/03/22 04:33 Seg Neuts % (Manual) 46.0 % (40.0-70.0) 03/03/22 04:33 Band Neutrophils % 0 % 03/03/22 04:33 Lymphocytes % (Manual) 37.0 % (13.4-35.0) H 03/03/22 04:33 Reactive Lymphs % (Man) 5.0 % 03/03/22 04:33 Monocytes % (Manual) 2.0 % (0.0-7.3) 03/03/22 04:33 Eosinophils % (Manual) 7.0 % (0.0-4.3) H 03/03/22 04:33 Basophils % (Manual) 0 % (0.0-1.8) 03/03/22 04:33 Metamyelocytes % 1.0 % 03/03/22 04:33 Myelocytes % 0 % 03/03/22 04:33 Promyelocytes % 1.0 % 03/03/22 04:33 Blast Cells % 1.0 % 03/03/22 04:33 Nucleated RBC % Not Reportable 03/03/22 04:33 Seg Neutrophils # 2.9 K/mm3 (1.8-7.7) 03/02/22 04:12 Seg Neutrophils # Man 3.2 K/mm3 (1.8-7.7) 03/03/22 04:33 Band Neutrophils # 0.0 K/mm3 03/03/22 04:33 Lymphocytes # (Manual) 2.6 K/mm3 (1.2-5.4) 03/03/22 04:33 Abs React Lymphs (Man) 0.3 K/mm3 03/03/22 04:33 Monocytes # (Manual) 0.1 K/mm3 (0.0-0.8) 03/03/22 04:33 Eosinophils # (Manual) 0.5 K/mm3 (0.0-0.4) H 03/03/22 04:33 Basophils # (Manual) 0.0 K/mm3 (0.0-0.1) 03/03/22 04:33 Metamyelocytes # 0.1 K/mm3 03/03/22 04:33 Myelocytes # 0.0 K/mm3 03/03/22 04:33 Promyelocytes # 0.1 K/mm3 03/03/22 04:33 Blast Cells # 0.9 K/mm3 03/03/22 04:33 WBC Morphology Not Reportable 03/03/22 04:33 Hypersegmented Neuts Not Reportable 03/03/22 04:33 Hyposegmented Neuts Not Reportable 03/03/22 04:33 Hypogranular Neuts Not Reportable 03/03/22 04:33 Smudge Cells Not Reportable 03/03/22 04:33 Toxic Granulation Not Reportable 03/03/22 04:33 Toxic Vacuolation Not Reportable 03/03/22 04:33 Dohle Bodies Not Reportable 03/03/22 04:33 Pelger-Huet Anomaly Not Reportable 03/03/22 04:33 Kartik Rods Not Reportable 03/03/22 04:33 Platelet Estimate Consistent w auto 03/03/22 04:33 Clumped Platelets Not Reportable 03/03/22 04:33 Plt Clumps, EDTA Not Reportable 03/03/22 04:33 Large Platelets Few 03/03/22 04:33 Giant Platelets Not Reportable 03/03/22 04:33 Platelet Satelliting Not Reportable 03/03/22 04:33 Plt Morphology Comment Not Reportable 03/03/22 04:33 RBC Morphology Normal 03/03/22 04:33 Dimorphic RBCs Not Reportable 03/03/22 04:33 Polychromasia Not Reportable 03/03/22 04:33 Hypochromasia Not Reportable 03/03/22 04:33 Poikilocytosis Not Reportable 03/03/22 04:33 Anisocytosis Not Reportable 03/03/22 04:33 Microcytosis Not Reportable 03/03/22 04:33 Macrocytosis Not Reportable 03/03/22 04:33 Spherocytes Not Reportable 03/03/22 04:33 Pappenheimer Bodies Not Reportable 03/03/22 04:33 Sickle Cells Not Reportable 03/03/22 04:33 Target Cells Not Reportable 03/03/22 04:33 Tear Drop Cells Not Reportable 03/03/22 04:33 Ovalocytes Not Reportable 03/03/22 04:33 Helmet Cells Not Reportable 03/03/22 04:33 [place] Bodies Not Reportable 03/03/22 04:33 [place] Rings Not Reportable 03/03/22 04:33 [place] Cells Not Reportable 03/03/22 04:33 Bite Cells Not Reportable 03/03/22 04:33 Crenated Cell Not Reportable 03/03/22 04:33 Elliptocytes Not Reportable 03/03/22 04:33 Acanthocytes (Spur) Not Reportable 03/03/22 04:33 Rouleaux Not Reportable 03/03/22 04:33 Hemoglobin C Crystals Not Reportable 03/03/22 04:33 Schistocytes Not Reportable 03/03/22 04:33 Malaria parasites Not Reportable 03/03/22 04:33 Jason Bodies Not Reportable 03/03/22 04:33 Hem Pathologist Commnt No 03/03/22 04:33 PT 14.0 Sec. (12.2-14.9) 03/02/22 13:54 INR 0.97 (0.87-1.13) 03/02/22 13:54 APTT 25.7 Sec. (24.2-36.6) 03/02/22 13:54 Sodium 140 mmol/L (137-145) 03/03/22 04:33 Potassium 4.2 mmol/L (3.6-5.0) 03/03/22 04:33 Chloride 104.6 mmol/L (98-107) 03/03/22 04:33 Carbon Dioxide 22 mmol/L (22-30) 03/03/22 04:33 Anion Gap 18 mmol/L 03/03/22 04:33 BUN 11 mg/dL (9-20) 03/03/22 04:33 Creatinine 0.9 mg/dL (0.8-1.3) 03/03/22 04:33 Estimated GFR > 60 ml/min 03/03/22 04:33 BUN/Creatinine Ratio 12 % 03/03/22 04:33 Glucose 98 mg/dL (75-100) 03/03/22 04:33 Calcium 8.7 mg/dL (8.4-10.2) 03/03/22 04:33 Total Bilirubin 1.70 mg/dL (0.1-1.2) H 03/03/22 04:33 AST 20 units/L (5-40) 03/03/22 04:33 ALT 18 units/L (7-56) 03/03/22 04:33 Alkaline Phosphatase 79 units/L (35-129) 03/03/22 04:33 Troponin T < 0.010 ng/mL (0.00-0.029) 03/02/22 09:39 Total Protein 6.6 g/dL (6.3-8.2) 03/03/22 04:33 Albumin 3.9 g/dL (3.9-5) 03/03/22 04:33 Albumin/Globulin Ratio 1.4 % 03/03/22 04:33 TSH 2.010 mlU/mL (0.270-4.200) 03/02/22 16:44 Diana/IV: Voiding Method Toilet Active Medications - Current Medications Current Medications: Generic Name Dose Route Start Last Admin Trade Name Freq PRN Reason Stop Dose Admin Acetaminophen 650 mg 03/02/22 13:07 Acetaminophen 325 Mg Tab PO Q4H PRN Pain MILD(1-3)/Fever >100.5/GANNON Sodium Chloride 1,000 mls @ 75 mls/hr 03/02/22 13:15 Nacl 0.9% 1000 Ml IV DIRECT GOGO Metoclopramide HCl 10 mg 03/02/22 13:07 Metoclopramide 10 Mg/2 Ml Inj IV Q6H PRN Nausea And Vomiting Morphine Sulfate 2 mg 03/02/22 13:07 Morphine 2 Mg/1 Ml Inj IV Q4H PRN Pain, Moderate (4-6) Nifedipine 60 mg 03/02/22 17:00 03/04/22 09:01 Nifedipine Xl 60 Mg Tab PO 60 mg QDAY GOGO Administration Ondansetron HCl 4 mg 03/02/22 13:07 Ondansetron 4 Mg/2 Ml Inj IV Q8H PRN Nausea And Vomiting Oxycodone/Acetaminophen 1 tab 03/02/22 13:07 Oxycodone /Acetaminophen 5-325mg Tab PO Q6H PRN Pain, Moderate (4-6) Sodium Chloride 10 ml 03/02/22 22:00 03/04/22 09:01 Sodium Chloride 0.9% 10 Ml Flush Syringe IV 10 ml BID GOGO Administration Sodium Chloride 10 ml 03/02/22 13:07 Sodium Chloride 0.9% 10 Ml Flush Syringe IV PRN PRN LINE FLUSH Valsartan 160 mg 03/02/22 14:00 03/04/22 13:42 Valsartan 160mg Tab PO 160 mg Q24H GOGO Administration
--- NOTE | 2022-03-04 17:45 | Consultation ---
History of Present Illness Consult date: 03/04/22 Consult reason: bradycardia History of present illness: 56M with PMHx of HTN, DVT, and non-compliance is admitted with "feeling off." Admission EKG notable for AFL with variable response HR 52. Patient denies any chest pain, dyspnea, LH, dizziness, or syncope. He denies any activity intolerance and has been walking in the hospital without any symptoms. He has not followed with any physicians. Workup thus far notable for normal TSH. Echo shows LVEF 50%. Telemetry throughout admission has been extensively reviewed and shows AFL 60 currently. Patient does have periods of bradycardia to 30s, which are predominantly during hours of sleep. No prolonged pauses have been noted. Past History Past Medical History: DVT, hypertension Medications and Allergies Allergies Allergy/AdvReac Type Severity Reaction Status Date / Time aspirin Allergy Severe Anaphylaxis Verified 07/05/21 13:30 Ct Contrast AdvReac Anaphylaxis Uncoded 07/05/21 13:30 Home Medications Medication Instructions Recorded Confirmed Last Taken Type Apixaban [Eliquis] 5 mg PO BID 30 Days #60 tablet 07/05/21 03/02/22 1 Day Ago Rx ~03/01/22 amLODIPine [Norvasc] 5 mg PO DAILY 03/02/22 03/02/22 Unknown History Active Meds: Active Medications Acetaminophen (Acetaminophen 325 Mg Tab) 650 mg PO Q4H PRN PRN Reason: Pain MILD(1-3)/Fever >100.5/GANNON Sodium Chloride (Nacl 0.9% 1000 Ml) 1,000 mls @ 75 mls/hr IV DIRECT GOGO Metoclopramide HCl (Metoclopramide 10 Mg/2 Ml Inj) 10 mg IV Q6H PRN PRN Reason: Nausea And Vomiting Morphine Sulfate (Morphine 2 Mg/1 Ml Inj) 2 mg IV Q4H PRN PRN Reason: Pain, Moderate (4-6) Nifedipine (Nifedipine Xl 60 Mg Tab) 60 mg PO QDAY GOGO Last Admin: 03/04/22 09:01 Dose: 60 mg Ondansetron HCl (Ondansetron 4 Mg/2 Ml Inj) 4 mg IV Q8H PRN PRN Reason: Nausea And Vomiting Oxycodone/Acetaminophen (Oxycodone /Acetaminophen 5-325mg Tab) 1 tab PO Q6H PRN PRN Reason: Pain, Moderate (4-6) Sodium Chloride (Sodium Chloride 0.9% 10 Ml Flush Syringe) 10 ml IV BID [facility] Last Admin: 03/04/22 09:01 Dose: 10 ml Sodium Chloride (Sodium Chloride 0.9% 10 Ml Flush Syringe) 10 ml IV PRN PRN PRN Reason: LINE FLUSH Valsartan (Valsartan 160mg Tab) 160 mg PO Q24H [facility] Last Admin: 03/04/22 13:42 Dose: 160 mg Physical Examination Vital Signs Temp Pulse Resp BP Pulse Ox 98.0 F 60 18 189/95 98 03/02/22 03:25 03/02/22 03:25 03/02/22 03:25 03/02/22 03:25 03/02/22 03:25 Narrative exam: Gen-NAD, cooperative HEENT-normocephalic, atraumatic Neck-supple, no JVD CV-irregular rhythm, regular rate, no murmur Lungs-CTAB, on RA Abd-soft/nt/nd Ext-no edema, warm to touch Neuro-A&Ox3, no focal deficits Psych- affect appropriate Results 03/04/22 06:25 03/03/22 04:33 CBC 03/04/22 Range/Units 06:25 WBC 7.2 (4.5-11.0) K/mm3 RBC 6.41 H (3.65-5.03) M/mm3 Hgb 15.6 H (11.8-15.2) gm/dl Hct 48.9 H (35.5-45.6) % Plt Count 218 (140-440) K/mm3 03/02/22 EKG - atrial flutter with variable response, HR 52 Assessment and Plan #AFL of unknown duration - does not appear to be typical morphology #HTN #DVT #Non-compliance #Obesity EKG/telemetry show rate controlled AFL with variable AV conduction. HRs are currently 60 bpm, and only intermittent nocturnal bradycardia is noted. No evidence of AV block or prolonged pauses are noted. No indication for pacemaker at this time. Recommend avoiding AV teofilo blocking agents. Continue anticoagulation. Patient should follow up with Dr. Turk at [facility] office with consideration for out-patient cardioversion for religion of SR. He will also benefit from out-patient PRIYANKA evaluation. Thank you for involving us in the care of this patient.
[2022-03-05 07:48] VITALS: BP 139/85
[2022-03-05] MEDS: NIFEdipine XL 60 MG TAB PO SCH (09:10)
--- NOTE | 2022-03-05 11:11 | Discharge Summary ---
Providers - Providers Date of Admission: 03/02/22 13:08 Attending physician: IMLTON GANDHI 03/02/22 13:07 Consult to Physician [CONS] Routine Comment: Consulting Provider: RAUL SAWYER Physician Instructions: Reason For Exam: A flutter/HTN Primary care physician: WRECKING MECHANIC Hospitalization Condition: Fair Disposition: 30 STILL A PATIENT - Discharge Diagnoses (1) Atrial flutter Status: Acute Qualifiers: Atrial flutter type: typical Qualified Code(s): I48.3 - Typical atrial flutter (2) Obesity (BMI 30.0-34.9) Status: Acute (3) Heart block Status: Acute (4) DVT prophylaxis Status: Acute (5) Advance care planning Status: Acute (6) Preventative health care Status: Acute Exam - Constitutional Vitals: Temp Pulse Resp BP Pulse Ox 97.9 F 59 L 18 139/85 100 03/05/22 07:46 03/05/22 07:46 03/05/22 07:46 03/05/22 07:46 03/05/22 07:46 Plan Follow up with: PRIMARY MD [id number] [Primary Care Provider] - 3-5 Days Prescriptions: Valsartan [Diovan] 160 mg PO Q24H #30 tablet Apixaban [Eliquis] 5 mg PO BID 30 Days #60 tablet NIFEdipine XL [Procardia Xl] 60 mg PO QDAY #30 tablet
== END 2022-03-05 13:26 | disposition home or self-care (01) | DRG 310 ==
LOC: ED 02:47 → 4A 13:08
PROVIDERS: ADMIT Internal Medicine; ATTEND Internal Medicine
DX: I48.92 Unspecified atrial flutter (principal); I10 Essential (primary) hypertension; N40.0 Benign prostatic hyperplasia without lower urinary tract symptoms; E66.9 Obesity, unspecified; Z68.33 Body mass index [BMI] 33.0-33.9, adult; I45.9 Conduction disorder, unspecified; Z91.19 Patient's noncompliance with other medical treatment and regimen; Z88.6 Allergy status to analgesic agent; Z91.041 Radiographic dye allergy status
CPT/HCPCS: 36415; 71046; 78580; 80053; 82565; 84443; 84484; 85007; 85025; 85027; 85610; 85730; 93005; 93306; 99285; G0378; A9540; C8929